=== PATIENT | male | born 1955 | race African-American/Black ===

== ENCOUNTER 2023-09-04 12:21 | Emergency (ER) | payer MEDICARE, MEDICAID ==
[~2023-09-04] VITALS: Ht 167.6 cm; Wt 80.0 kg
[~2023-09-04 12:21] MED LIST: ALLO100T PO; AMLO10TA80 PO; ASPI-1160 PO; INSU100V43 SQ; INSU100V51 SUBCUT; LISI-186 PO
[2023-09-04 12:23] VITALS: TEMP 98.7; O2SAT 99
[2023-09-04] MEDS ORDERED: KETOROLAC 30MG/ML VIAL IM ONE (12:30)
[2023-09-04] MEDS ORDERED: DICL100G32 TP (15:21)
[2023-09-04] MEDS ORDERED: NAPR500T7 MT (15:21)
[2023-09-04 15:58] VITALS: BP 108/73; PULSE 64; RESP 18
[2023-09-04] MEDS ORDERED: KETOROLAC 30MG/ML VIAL IM NR (16:00)
== END 2023-09-04 16:04 | disposition home or self-care (01) ==
LOC: ER 12:21
DX: M17.11 Unilateral primary osteoarthritis, right knee (principal); I10 Essential (primary) hypertension; E11.9 Type 2 diabetes mellitus without complications; Z86.73 Personal history of transient ischemic attack (TIA), and cerebral infarction without residual deficits
CPT/HCPCS: 99283; 73560; 96372; J1885